=== PATIENT | female | born 1975 | race African-American/Black ===

== ENCOUNTER 2022-01-07 19:51 | Emergency (ER) | payer OTHER ==
[2022-01-07 20:39] LABS: Absolute Lymphocytes (CBC) 2.5 K/uL (0.7-4.9); Hematocrit 39.4 % (36.0-45.0); Lymphocytes % 38.1 % (15.3-44.8); MCV 91.2 fL (80-100); MPV 7.2 fL (7.6-11.3); RBC Red Blood Cell Count 4.32 M/uL (3.86-4.86)
[2022-01-07 22:53] LABS: Urine Blood Negative (Negative); Urine Glucose Negative (Negative); Urine Protein Negative (Negative); Urine Specific Gravity 1.025 (1.005-1.030)
[2022-01-07] MEDS ORDERED: KETOROLAC 30 MG/ML INJ ONE (22:57)
[2022-01-07 22:59] LABS: Urine Mucus Slight /HPF (None Seen); Urine RBC <5 /HPF (None Seen)
[2022-01-07 23:04] LABS: Albumin 3.9 g/dL (3.4-5.0); Bilirubin Total 0.3 mg/dL (0.2-1.0); Potassium 4.2 mmol/L (3.5-5.1)
[2022-01-07 23:43] LABS: Urine Specific Gravity/Preg 1.025 (1.005-1.030)
--- NOTE | 2022-01-08 02:12 | EDPHYS ---
Physician Documentation [facility] Name: Luis Hanson Age: 46 yrs Sex: Female : 1975 Arrival Date: 01/07/2022 Time: 19:58 Bed 7 Private MD: ED Physician Aaron Archibald HPI: 01/07 21:00 This 46 yrs old Black Female presents to ER via Ambulatory with complaints of Pelvic cp Pain. 21:00 The patient presents with pelvic pain, that is located in/on the right adnexal and cp groin area, the pain radiates to the right hip and right low back, the pain is described as waxing and waning, like rubber band pressing on area, burning, vaginal bleeding that is spotting couple weeks ago, no bleeding currently, vaginal discharge, none. 21:00 Associated signs and symptoms: Pertinent positives: urinary frequency, Pertinent cp negatives: diarrhea, dyspareunia, dysuria, fever, vomiting, abdominal pain. Severity of symptoms: in the emergency department the symptoms are unchanged, despite home interventions. Patient reports history of right ovary and tubal removal. 21:00 Onset: The symptoms/episode began/occurred 2 month(s) ago. 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 It has been more than one year since last vaccine. - Social history:: Smoking status: Patient denies any tobacco usage or history of. ROS: 21:05 Constitutional: Negative for body aches, chills, fever, poor PO intake. cp 21:05 Cardiovascular: Negative for chest pain, edema, palpitations. cp 21:05 Respiratory: Negative for cough, shortness of breath, wheezing. 21:05 Abdomen/GI: Negative for abdominal pain, vomiting, diarrhea, constipation, black/tarry stool, rectal bleeding. 21:05 Back: Positive for radiated pain, of the right lower back, Negative for injury or acute deformity, decreased range of motion. 21:05 : Positive for urinary frequency, of the right adnexal and right groin, pain, Negative for hematuria, burning with urination, vaginal bleeding, vaginal discharge. 21:05 Skin: Negative for rash. 21:05 Neuro: Negative for dizziness, headache, numbness, tingling, weakness. 21:05 All other systems are negative. Exam: 21:10 Constitutional: The patient appears in no acute distress, alert, awake, non-toxic, well cp developed, well nourished. 21:10 Head/Face: Normocephalic, atraumatic. cp 21:10 Eyes: Periorbital structures: appear normal, Conjunctiva: normal, no exudate, no injection, Sclera: no appreciated abnormality, Lids and lashes: appear normal, bilaterally. 21:10 ENT: External ear(s): are unremarkable, Nose: is normal, Mouth: Lips: moist, Oral mucosa: moist, Posterior pharynx: Airway: no evidence of obstruction, patent. 21:10 Chest/axilla: Inspection: normal. 21:10 Cardiovascular: Rate: normal, Rhythm: regular, Edema: is not appreciated, JVD: is not appreciated. 21:10 Respiratory: the patient does not display signs of respiratory distress, Respirations: normal, no use of accessory muscles, no retractions, labored breathing, is not present. 21:10 Abdomen/GI: Inspection: abdomen appears normal, Bowel sounds: active, all quadrants, Palpation: soft, in all quadrants, nontender, in all quadrants. 21:10 Musculoskeletal/extremity: Extremities: noted in the right groin: tenderness, There is no evidence of swelling. 01/08 02:09 : Pelvic Exam: The exam is refused by the patient/guardian. The risks and cp consequences are understood by the patient, Sexual behavior: the patient is sexually active, and reports a single partner. Vital Signs: 01/07 20:09 BP 130 / 97; Pulse 76; Resp 18; Temp 98.1; Pulse Ox 99% on R/A; Weight 89.36 kg; Height tw5 5 ft. 3 in. (160.02 cm); Pain 8/10; 23:07 BP 126 / 82; Pulse 67; Resp 16 S; Pulse Ox 99% on R/A; Pain 8/10; bb 23:45 BP 117 / 58; Pulse 64; Resp 18 S; Pulse Ox 99% on R/A; aa9 11/12 01:48 BP 123 / 85; Pulse 66; Resp 16 S; Pulse Ox 99% on R/A; Pain 10/06; bb 01/07 20:09 Body Mass Index 34.90 (89.36 kg, 160.02 cm) tw5 MDM: 01/07 20:17 Patient medically screened. dionisio 01/08 02:10 Data reviewed: vital signs, nurses notes, lab test result(s), radiologic studies, CT cp scan. 02:10 Differential diagnosis: ectopic , pelvic inflammatory disease, uterine cp fibroids, urinary tract infection, vaginosis. Counseling: I had a detailed discussion with the patient and/or guardian regarding: the historical points, exam findings, and any diagnostic results supporting the discharge/admit diagnosis, lab results, radiology results, to return to the emergency department if symptoms worsen or persist or if there are any questions or concerns that arise at home. Response to treatment: the patient's symptoms have mildly improved after treatment, and as a result, I will discharge patient. 01/07 20:16 Order name: CBC with Diff; Complete Time: 22:36 01/08 00:25 Interpretation: MPV 7.2; Reviewed. 01/07 20:16 Order name: CMP; Complete Time: 00:24 01/08 00:24 Interpretation: Normal except: GFR 59; AST 12; GLOB 4.1; A/G 1.0. 01/07 20:16 Order name: Lipase; Complete Time: 00:24 01/07 20:16 Order name: Urine Microscopic Only; Complete Time: 00:24 01/08 00:24 Interpretation: Reviewed. 01/07 22:53 Order name: Urine Dipstick-Ancillary; Complete Time: 22:59 EDMS 01/07 22:59 Interpretation: Reviewed. 01/07 22:58 Order name: Urine --Ancillary (enter results); Complete Time: 00:24 mw2 01/07 20:16 Order name: IV Saline Lock; Complete Time: 20:25 01/07 20:16 Order name: Labs collected and sent; Complete Time: 20:25 01/07 20:16 Order name: Urine Dipstick-Ancillary (obtain specimen); Complete Time: 22:54 cp 01/07 20:16 Order name: Urine Test (obtain specimen); Complete Time: 22:54 cp 01/07 22:37 Order name: CT Abd/Pelvis - IV Contrast Only cp Administered Medications: 01/07 23:07 Drug: Ketorolac 15 mg Route: IVP; Site: right antecubital; bb 01/08 01:49 Follow up: Response: No change in condition; Pain is unchanged, physician notified bb 02:19 Drug: morphine 4 mg Route: IVP; Infused Over: 4 mins; Site: right antecubital; bb Disposition Summary: 01/08/22 02:11 Discharge Ordered Location: Home cp Problem: new cp Symptoms: have improved cp Condition: Stable cp Diagnosis - Pelvic and perineal pain - right cp Followup: cp - With: Private Physician - When: 2 - 3 days - Reason: Recheck today's complaints Discharge Instructions: - Discharge Summary Sheet cp - Pelvic Pain, Female cp Forms: - Medication Reconciliation Form cp - Thank You Letter cp - Antibiotic Education cp - Prescription Opioid Use cp Prescriptions: - Tramadol 50 mg Oral Tablet - take 1 tablet by ORAL route every 8 hours as needed; 12 tablet; Refills: 0, cp Product Selection Permitted Addendum: 01/13/2022 09:54 Co-signature as Attending Physician, Aaron Archibald MD I agree with the assessment and c hodgson plan of care. Signatures: Dispatcher [employer] EDAaron Sepulveda MD MD cha Ballard, Brenda, RN RN Aaron Christina PA PA cp Wood, Tiffany tw5 Corrections: (The following items were deleted from the chart) 01/08 00:24 00:24 Normal except: GFR 59. cp cp 00:25 01/07 23:00 Reviewed. cp cp 01/09 01:50 01/07 21:00 The patient presents with pelvic pain, that is located in/on the right cp adnexal and groin area, the pain radiates to the right hip, the pain is described as waxing and waning, vaginal bleeding that is spotting couple weeks ago, no bleeding currently, vaginal discharge, none, cp 01/09 01:50 01/07 21:00 Associated signs and symptoms: Pertinent negatives: diarrhea, dyspareunia, cp dysuria, fever, urinary frequency, vomiting, abdominal pain, cp 01/09 01:51 01/07 21:00 The patient presents with pelvic pain, that is located in/on the right cp adnexal and groin area, the pain radiates to the right hip and right low back, the pain is described as waxing and waning, vaginal bleeding that is spotting couple weeks ago, no bleeding currently, vaginal discharge, none, cp
--- NOTE | 2022-01-08 02:12 | ER ---
Nurse's Notes [facility] Name: Luis Hanson Age: 46 yrs Sex: Female : 1975 Arrival Date: 01/07/2022 Time: 19:58 Bed 7 Private MD: Diagnosis: Pelvic and perineal pain-right Presentation: 01/07 20:09 Chief complaint: Patient states: "I am having pain in the right side of my groin. It tw5 lower like in the groin area. Sometimes it radiates, sometimes it doesn't into my back. It started several weeks ago. It is just getting worse. It feels like a rubber band pressing on me with a burning sensation after I finish walking and sit down." Patient denies discomfort with urination. She further states " However I have been urinating every hour on the hour.". Coronavirus screen: Vaccine status: Patient reports receiving the 2nd dose of the covid vaccine. moderna. Ebola Screen: Patient negative for fever greater than or equal to 101.5 degrees Fahrenheit, and additional compatible Ebola Virus Disease symptoms Patient denies exposure to infectious person. Patient denies travel to an Ebola-affected area in the 21 days before illness onset. Initial Sepsis Screen: Does the patient meet any 2 criteria? No. Patient's initial sepsis screen is negative. Does the patient have a suspected source of infection? No. Patient's initial sepsis screen is negative. Risk Assessment: Do you want to hurt yourself or someone else? Patient reports no desire to harm self or others. Onset of symptoms is unknown. 20:09 Method Of Arrival: Ambulatory tw5 20:09 Acuity: DU 3 tw5 Triage Assessment: 20:15 General: Appears in no apparent distress. Behavior is calm, cooperative, appropriate tw5 for age. Pain: Pain currently is 6 out of 10 on a pain scale. 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 It has been more than one year since last vaccine. - Social history:: Smoking status: Patient denies any tobacco usage or history of. Screenin:07 Abuse screen: Denies threats or abuse. Nutritional screening: No deficits noted. bb Tuberculosis screening: No symptoms or risk factors identified. Fall Risk None identified. Assessment: 23:07 General: Appears in no apparent distress. Behavior is calm, cooperative. Pain: bb Complains of pain in right lower quad. Neuro: Level of Consciousness is awake, alert, obeys commands, Oriented to person, place, time, situation. Cardiovascular: Capillary refill < 3 seconds Patient's skin is warm and dry. Respiratory: Respiratory effort is even, unlabored, Respiratory pattern is regular. GI: Abdomen is non-distended, Reports lower abdominal pain. Derm: Skin is dry, Skin is normal, Skin temperature is warm. Musculoskeletal: Circulation, motion, and sensation intact. 01/08 01:48 Reassessment: Patient is alert, oriented x 3, equal unlabored respirations, skin bb warm/dry/pink. Patient states symptoms have not improved. Aaron MORROW notified. Vital Signs: 01/07 20:09 BP 130 / 97; Pulse 76; Resp 18; Temp 98.1; Pulse Ox 99% on R/A; Weight 89.36 kg; Height tw5 5 ft. 3 in. (160.02 cm); Pain 8/10; 23:07 BP 126 / 82; Pulse 67; Resp 16 S; Pulse Ox 99% on R/A; Pain 8/10; bb 23:45 BP 117 / 58; Pulse 64; Resp 18 S; Pulse Ox 99% on R/A; aa9 01/08 01:48 BP 123 / 85; Pulse 66; Resp 16 S; Pulse Ox 99% on R/A; Pain 8/10; bb 01/07 20:09 Body Mass Index 34.90 (89.36 kg, 160.02 cm) tw5 ED Course: 01/07 19:58 Patient arrived in ED. ss 20:08 Aaron Carroll PA is PHCP. cp 20:08 Aaron Archibald MD is Attending Physician. cp 20:15 Triage completed. tw5 20:15 Arm band placed on right wrist. tw5 20:17 Patient notified of wait time. tw5 20:25 CBC with Diff Sent. tw5 20:25 CMP Sent. tw5 20:25 Lipase Sent. tw5 20:25 Initial lab(s) drawn, by me, sent to lab. Inserted saline lock: 20 gauge in right tw5 antecubital area, using aseptic technique. Blood collected. 23:07 Patient has correct armband on for positive identification. Bed in low position. Call bb light in reach. Side rails up X 1. Adult w/ patient. Pulse ox on. NIBP on. Warm blanket given. 01/08 00:58 CT Abd/Pelvis - IV Contrast Only In Process Unspecified. EDMS 01:48 Yolanda Bond, RN is Primary Nurse. bb 02:32 No provider procedures requiring assistance completed. IV discontinued, intact, aa9 bleeding controlled, No redness/swelling at site. Pressure dressing applied. Administered Medications: 01/07 23:07 Drug: Ketorolac 15 mg Route: IVP; Site: right antecubital; bb 01/08 01:49 Follow up: Response: No change in condition; Pain is unchanged, physician notified bb 02:19 Drug: morphine 4 mg Route: IVP; Infused Over: 4 mins; Site: right antecubital; bb Medication: 01/07 23:07 VIS not applicable for this client. bb Outcome: 01/08 02:11 Discharge ordered by MD. cp 02:32 Discharged to home ambulatory, with friend. aa9 02:32 Condition: stable 02:32 Discharge instructions given to patient, Instructed on discharge instructions, follow up and referral plans. medication usage, Demonstrated understanding of instructions, follow-up care, medications, Prescriptions given X 1. 02:33 Patient left the ED. aa9 Signatures: Dispatcher [employer] EDDC Yolanda Bond, Mackenzie Ly RN, RN RN ss Page, Corey, PA PA cp Wood, Tiffany tw5 Lamar Burton RN RN aa9
[2022-01-08] MEDS ORDERED: MORPHINE 4 MG/ML SYR ONE (02:14)
[2022-01-08 04:04] VITALS: TEMP 98.1; O2SAT 99
[2022-01-08 04:08] VITALS: BP 123/85
--- NOTE | 2022-01-10 11:09 | RAD REPORT ---
EXAM DESCRIPTION: CT - Abdomen Pelvis W Contrast - 01/08/2022 6:27 am CLINICAL HISTORY: 46 years, Female, right side pelvic pain COMPARISON: None TECHNIQUE: Contrast-enhanced images of the abdomen and pelvis were performed utilizing 5 mm slice th ickness at 5 mm interval reconstruction from the lung bases to the ischial tuberosities after the adm inistration of IV contrast. In addition multiplanar reformats in the coronal and sagittal plane were obtained and reviewed. This exam was performed according to our departmental dose-optimization protocol, which includes auto mated exposure control, adjustment of the mA and/or kV according to patient size and/or use of iterat parvez reconstruction technique. FINDINGS: The lung bases demonstrate to be clear. The liver demonstrated presence of a small hepatic cysts measuring 1.7 cm on image 32 and inferior ri ght hepatic lobe measuring 0.8 cm on image 34. Otherwise the liver, pancreas, spleen and adrenal glan ds demonstrate to be unremarkable, no focal lesions are noted. The gallbladder is contracted with no gross abnormalities. No biliary duct dilatation The kidneys demonstrate normal uptake of contrast media. No evidence for nephrolithiasis and/or hydro nephrosis. There is a fat-containing lesion within the medial aspect mid pole left kidney measuring 1 .4 cm on image 35/92 corresponding to a anterior myolipoma Grossly the unopacified stomach, small bowel and large bowel demonstrate to be within normal limits. There is no evidence for bowel dilatation/or free air. There is mild fecal stasis. The appendix i s normal. The urinary bladder demonstrate to be unremarkable. The uterus is unremarkable. There are no adnexa l masses. The aorta demonstrate to be normal. There is no retroperitoneal lymphadenopathy. There is no evidence for ascites/or significant abnormal fluid collections. The rest of the soft tissue and bony structures are within normal limits. There is tiny right inguinal hernia. IMPRESSION: Mild fecal stasis. 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 Hepatic cysts. Tiny right inguinal hernia. Electronically signed by: Dion Landers MD 01/08/2022 1:30 AM FRAME FIXER Due to temporary technical issues with the PACS/Fluency reporting system, reports are being signed by the in house radiologists without review as a courtesy to insure prompt reporting. The interpreting radiologist is fully responsible for the content of the report.
== END 2022-01-08 02:33 | disposition home or self-care (01) ==
LOC: ER 19:51
DX: R10.2 Pelvic and perineal pain (principal); Z88.5 Allergy status to narcotic agent; Z88.8 Allergy status to other drugs, medicaments and biological substances
CPT/HCPCS: 85025; 36415; 81025; 83690; 80053; 74177; 96375; 96374; 99284; Q9967; 81003; 81015